=== PATIENT | female | born 1965 | race African-American/Black ===

== ENCOUNTER → 2017-07-25 | Outpatient (CLI) | payer OTHER ==
--- NOTE | 2017-07-29 14:45 | WOMENS IMAGING REPORT ---
EXAM DESCRIPTION: BILAT SCREENING MAMMO W/CAD COMPLETED DATE/TIME: 07/25/2017 4:00 pm REASON FOR STUDY: SCREENING MAMMO Z12.31 ENCNTR SCREEN MAMMOGRAM FOR MALIGNANT NEOPLASM OF LILY COMPARISON: Multiple since 2008 TECHNIQUE: Standard craniocaudal and mediolateral oblique views of each breast recorded using digita l acquisition. LIMITATIONS: None. FINDINGS: Findings present which are benign by mammographic criteria. No suspicious masses, calcifi cations or architectural distortion. Pertinent benign findings: Stable asymmetrically dense breast tissue left upper inner quadrant Read with the assistance of CAD. .[facility] - R2 Cenova Version 1.3 .[facility] Imaging - R2 Cenova Version 1.3 .[facility] - R2 Cenova Version 2.4 .[facility]2 Cenova Version 2.4 .[facility] - R2 Product Marketer Version 9.2 Benign mammographic findings may include one or more of the following: Smooth masses, popcorn/rim/co arse calcifications, asymmetries, post-procedure changes, and lesions with long-standing stability. IMPRESSION: BENIGN MAMMOGRAPHIC FINDINGS. BIRADS 2 BREAST DENSITY: b. There are scattered areas of fibroglandular density. BIRAD: 2 BENIGN FINDING(S) RECOMMENDATION: ROUTINE SCREENING Please consider bilateral screening tomosynthesis in July 2018 COMMENT: The patient has been notified of the results by letter per MQSA requirements. Additional no tification policies are in place for contacting patient with suspicious or incomplete findings. Quality ID #[id number]: The [employer] recommends an annual screening mammogram for women aged 40 years or over. This facility utilizes a reminder system to ensure that all patients receive reminder letters, and/or direct phone calls for appointments. This includes reminders for routine scr eening mammograms, diagnostic mammograms, or other Breast Imaging Interventions when appropriate. Th is patient will be placed in the appropriate reminder system. The [employer] (ACR) has developed recommendations for screening MRI of the breast s in certain patient populations, to be used in conjunction with mammography. Breast MRI surveillanc e may be appropriate for women with more than 20% lifetime risk of developing breast cancer as deter mined by genetic testing, significant family history of the disease, or history of mantle radiation f or Hodgkins Disease. ACR Practice Guidelines 2008. TECHNICAL DOCUMENTATION: FINDING NUMBER: (1) ASSESSMENT: (1) JOB ID: [id number] [employer]- All Rights Reserved
== END ==
LOC: WI 15:27
PROVIDERS: ATTEND Nurse Practitioner
DX: Z12.31 Encounter for screening mammogram for malignant neoplasm of breast (principal)
CPT/HCPCS: 77067; G0202

== ENCOUNTER → 2018-09-09 | Outpatient (CLI) | payer OTHER ==
--- NOTE | 2018-09-10 11:07 | WOMENS IMAGING REPORT ---
EXAM DESCRIPTION: 3D SCREENING MAMMO BILAT COMPLETED DATE/TIME: 09/09/2018 8:49 am REASON FOR STUDY: ROUTINE BILATERAL SCREENING;Z12.31 Z12.31 ENCNTR SCREEN MAMMOGRAM FOR MALIGNANT N EOPLASM OF LILY COMPARISON: 2013 to 2016 TECHNIQUE: Standard craniocaudal and mediolateral oblique views of each breast recorded using digita l acquisition and breast tomosynthesis. LIMITATIONS: None. FINDINGS: No masses, calcifications or architectural distortion. No areas of suspicion. Read with the assistance of CAD. .[facility] - R2 Cenova Version 1.3 .[facility] Imaging - R2 Cenova Version 1.3 .[facility] Imaging - R2 Cenova Version 2.4 .[facility] [place] - R2 Cenova Version 2.4 .[facility] - R2 Drum Drier Version 9.2 IMPRESSION: NORMAL MAMMOGRAM. BIRADS 1. BREAST DENSITY: b. There are scattered areas of fibroglandular density. BIRAD: 1 NEGATIVE RECOMMENDATION: ROUTINE SCREENING COMMENT: The patient has been notified of the results by letter per SA requirements. Additional no tification policies are in place for contacting patient with suspicious or incomplete findings. Quality ID #[id number]: The [employer] recommends an annual screening mammogram for women aged 40 years or over. This facility utilizes a reminder system to ensure that all patients receive reminder letters, and/or direct phone calls for appointments. This includes reminders for routine scr eening mammograms, diagnostic mammograms, or other Breast Imaging Interventions when appropriate. Th is patient will be placed in the appropriate reminder system. The [employer] (ACR) has developed recommendations for screening MRI of the breast s in certain patient populations, to be used in conjunction with mammography. Breast MRI surveillanc e may be appropriate for women with more than 20% lifetime risk of developing breast cancer as deter mined by genetic testing, significant family history of the disease, or history of mantle radiation f or Hodgkins Disease. ACR Practice Guidelines 2008. DBT Technology DBT is a type of tomographic mammography. With conventional mammography, overlapping breast tissue ma y make lesions difficult to detect, even with good compression. DBT uses an x-ray tube that rotates a round the breast, taking images at different angles. These images are then combined to create thin sl ices of the breast that the radiologist can view as a 3D reconstruction. The [employer] [facility] [employer] unit can perform full-field digital mammograms (2D imaging); or DBT (3D imaging); or both, in a combination mode that quickly performs both the mammogram and the tomosynthesis scan while the breast is still compressed. PQRS 6045F: Fluoroscopic imaging is not utilized for breast tomosynthesis. TECHNICAL DOCUMENTATION: FINDING NUMBER: (1) ASSESSMENT: (1) JOB ID: [id number] [employer]- All Rights Reserved Reading location - IP/workstation name: [email or web address]
== END ==
LOC: WI 08:05
PROVIDERS: ATTEND Nurse Practitioner
DX: Z12.31 Encounter for screening mammogram for malignant neoplasm of breast (principal)
CPT/HCPCS: 77063; 77067

== ENCOUNTER 2019-09-25 15:05 | Observation (INO) | payer OTHER ==
[2019-09-25] MEDS ORDERED: ONDANSETRON 4 MG TAB.RAPDIS PO ONE (15:39)
--- NOTE | 2019-09-25 15:39 | ER Document Report ---
ED Medical Screen (RME) - General Chief Complaint: Abdominal Injury Stated Complaint: ABDOMINAL PAIN/VOMITING Time Seen by Provider: 09/25/19 15:35 Primary Care Provider: ABRAHAM العلي FNP [Primary Care Provider] - Follow up as needed Mode of Arrival: Wheelchair Information source: Patient Notes: 54-year-old female presented to ED for complaint of nausea and vomiting since yesterday around 330. She states she went to [facility] about noon started vomiting since 330. She states every time she eats or drinks even water she vomits. She states this morning she started with pain in her right lower quadrant. She is alert oriented respirations regular nonlabored speaking in full sentences. She states she cannot drink anything or eat anything. She denies smoking drinking or using any drugs. I have greeted and performed a rapid initial assessment of this patient. A comprehensive ED assessment and evaluation of the patient, analysis of test results and completion of medical decision making process will be conducted by an additional ED providers. TRAVEL OUTSIDE OF THE [place] IN LAST 30 DAYS: No - Related Data Allergies/Adverse Reactions: acetaminophen [From Tylenol] Allergy (Verified 06/07/15 08:12) EYES ITCH AND SWELL Past Medical History - Past Medical History Cardiac Medical History: Denies: Hx Coronary Artery Disease, Hx Heart Attack, Hx Hypertension Pulmonary Medical History: Denies: Hx Asthma, Hx Bronchitis, Hx COPD, Hx Pneumonia Neurological Medical History: Denies: Hx Cerebrovascular Accident, Hx Seizures Musculoskeltal Medical History: Denies Hx Arthritis Past Surgical History: Denies: Hx Hysterectomy - Immunizations Hx Diphtheria, Pertussis, Tetanus Vaccination: - UNSURE Physical Exam - Vital signs Vitals: Temp Pulse Resp BP Pulse Ox 99 F 84 18 136/51 H 100 09/25/19 15:30 09/25/19 15:30 09/25/19 15:30 09/25/19 15:30 09/25/19 15:30 Course - Vital Signs Vital signs: Temp Pulse Resp BP Pulse Ox 99 F 84 18 136/51 H 100 09/25/19 15:30 09/25/19 15:30 09/25/19 15:30 09/25/19 15:30 09/25/19 15:30 Doctor's Discharge - Discharge Referrals: ABRAHAM العلي FNP [Primary Care Provider] - Follow up as needed
[2019-09-25 16:06] LABS: ABSOLUTE LYMPHOCYTES (AUTO) 1.1 10^3/uL (0.5-4.7); ABSOLUTE NEUT (AUTO) 12.4 10^3/uL (1.7-8.2); BASOPHILS % (AUTO) 0.2 % (0-2); HEMATOCRIT 37.5 % (36.0-47.0); HEMOGLOBIN 12.8 g/dL (12.0-15.5); LYMPHOCYTES % (AUTO) 7.3 % (13-45); MEAN CORPUSCULAR HGB CONC 34.1 g/dL (32.0-36.0); MEAN CORPUSCULAR VOLUME 88 fl (80-97); MONOCYTES % (AUTO) 6.7 % (3-13); PLATELET COUNT 233 10^3/uL (150-450); RED BLOOD COUNT 4.26 10^6/uL (3.72-5.28); RED CELL DISTRIBUTION WIDTH 12.8 % (11.5-14.0); SEGMENTED NEUTROPHILS % (AUTO) 85.8 % (42-78); TOTAL CELLS COUNTED % (AUTO) 100 %; WHITE BLOOD COUNT 14.5 10^3/uL (4.0-10.5)
[2019-09-25 16:28] LABS: ALBUMIN 4.4 g/dL (3.5-5.0); ALKALINE PHOSPHATASE 94 U/L (38-126); ANION GAP 13 (5-19); ASPARTATE AMINO TRANSFERASE 28 U/L (14-36); BILIRUBIN,DIRECT 0.1 mg/dL (0.0-0.4); BILIRUBIN,TOTAL 0.5 mg/dL (0.2-1.3); BLOOD UREA NITROGEN 11 mg/dL (7-20); CALCIUM 9.9 mg/dL (8.4-10.2); CARBON DIOXIDE 27 mmol/L (22-30); CHLORIDE 100 mmol/L (98-107); GLUCOSE 203 mg/dL (75-110); POTASSIUM 3.9 mmol/L (3.6-5.0); TOTAL PROTEIN 8.1 g/dL (6.3-8.2)
[2019-09-25 16:28] LABS: APPEARANCE,URINE SLIGHTLY-CLOUDY; BILIRUBIN,URINE NEGATIVE (NEGATIVE); COLOR,URINE YELLOW; GLUCOSE, URINE 150 mg/dL (NEGATIVE); KETONES,URINE TRACE mg/dL (NEGATIVE); PROTEIN,URINE 30 mg/dL (NEGATIVE); URINE SPECIFIC GRAVITY 1.024
[2019-09-25] MEDS ORDERED: NORMAL SALINE 1000 ML 1,000 ML IV ONE (17:21)
--- NOTE | 2019-09-25 17:22 | ER Document Report ---
ED GI/ - General Chief Complaint: Abdominal Injury Stated Complaint: ABDOMINAL PAIN/VOMITING Time Seen by Provider: 09/25/19 15:35 Mode of Arrival: Wheelchair Notes: Patient is a 54-year-old female who presents the emergency department with a chief complaint of nausea, vomiting, and right lower quadrant abdominal pain. Patient states that yesterday she went to go eat at [facility] and since then she ended up vomiting. Patient states that she has not been able to eat anything since then. Patient denies any fever. Today she ended up having the right lower quadrant pain. The pain stays in the area and does not radiate. Patient has a past medical history of glaucoma and is currently on eyedrops. Patient has history of a tummy tuck and in the past. TRAVEL OUTSIDE OF THE [place] IN LAST 30 DAYS: No - Related Data Allergies/Adverse Reactions: acetaminophen [From Tylenol] Allergy (Verified 09/25/19 15:37) EYES ITCH AND SWELL Past Medical History - General Information source: Patient - Social History Smoking Status: Never Smoker Chew tobacco use (# tins/day): No Frequency of alcohol use: None Drug Abuse: None Family History: Reviewed & Not Pertinent Patient has suicidal ideation: No Patient has homicidal ideation: No - Past Medical History Cardiac Medical History: Denies: Hx Coronary Artery Disease, Hx Heart Attack, Hx Hypertension Pulmonary Medical History: Denies: Hx Asthma, Hx Bronchitis, Hx COPD, Hx Pneumonia Neurological Medical History: Denies: Hx Cerebrovascular Accident, Hx Seizures Musculoskeletal Medical History: Denies Hx Arthritis Past Surgical History: Denies: Hx Hysterectomy - Immunizations Hx Diphtheria, Pertussis, Tetanus Vaccination: - UNSURE Review of Systems - Review of Systems Notes: REVIEW OF SYSTEMS: CONSTITUTIONAL : Denies recent illness. Denies recent unintentional weight loss. Denies fever, chills, or sweats. EENT: Denies eye, ear, throat, or mouth pain, discharge, or symptoms. Denies nasal or sinus congestion. CARDIOVASCULAR: Denies chest pain. RESPIRATORY: Denies shortness of breath, cough, congestion, difficulty breathing, or wheezing. GASTROINTESTINAL: See HPI. GENITOURINARY: Denies difficulty urinating, burning, blood in urine, urgency or frequency. MUSCULOSKELETAL: Denies neck and back pain. Denies joint pain or swelling. SKIN: Denies rash, itchiness, or lesions HEMATOLOGIC : Denies easy bruising or bleeding. LYMPHATIC: Denies swollen, painful, enlarged glands. NEUROLOGICAL: Denies no numbness or tingling denies weakness. Denies headache. Denies altered mental status. Denies alteration in speech. PSYCHIATRIC: Denies stress, anxiety, alteration in sleep patterns, or depression. All other systems reviewed and negative. Physical Exam - Vital signs Vitals: Temp Pulse Resp BP Pulse Ox 99 F 84 18 136/51 H 100 09/25/19 15:30 09/25/19 15:30 09/25/19 15:30 09/25/19 15:30 09/25/19 15:30 - Notes Notes: PHYSICAL EXAMINATION: GENERAL: Appears well, healthy, well-nourished, no acute distress. HEAD: Normocephalic, atraumatic. EYES: PERRL, conjunctiva normal, all extraocular movements intact, sclera nonicteric ENT: Dry mucous membranes. NECK: Supple, no noticeable swelling, redness, rash. Normal range of motion. LUNGS: Equal breath sounds bilaterally and clear to auscultation. No wheezes rales or rhonchi. CARDIOVASCULAR: S1-S2, regular rate, regular rhythm. Radial pulses 2+, normal. ABDOMEN: Normoactive bowel sounds. Soft, right lower quadrant tenderness with guarding noted, rebound tenderness, and no masses palpated. EXTREMITIES: Normal strength and range of motion, no pitting or edema. No cyanosis. NEUROLOGICAL: Moves all extremities upon command. Strength 5/5 in all ex tremities. PSYCH: Normal mood, normal affect. SKIN: Warm, dry. No rash, lesions, ulcerations noted. Normal skin turgor. Scars noted to the abdomen from previous tummy tuck. Course - Re-evaluation Re-evalutation: 09/25/19 18:29 Patient has right lower quadrant abdominal pain. She has guarding noted on physical exam. Patient will be sent for CT of the abdomen. She will also receive a dose of morphine to help with her pain. 09/25/19 19:43 Patient patient has a leukocytosis of 14,500. Chemistries are unremarkable. Bilirubin and total bilirubin and direct bilirubin are normal. Lipase is normal. Urinalysis shows the patient is to be hydrated. She received a liter of fluids here in the emergency department.Patient has cholelithiasis with cholecystitis noted on her CT scan. I spoke with Dr. Sanchez, the surgeon content producer. He will see the patient. Last time the patient ate was yesterday. - Vital Signs Vital signs: Temp Pulse Resp BP Pulse Ox 98.3 F 76 16 113/53 L 93 09/25/19 22:30 09/25/19 22:30 09/25/19 22:30 09/25/19 22:30 09/25/19 22:30 - Laboratory Result Diagrams: 09/25/19 15:51 09/25/19 15:51 Laboratory results interpreted by me: 09/25/19 09/25/19 09/25/19 15:51 15:51 16:06 WBC 14.5 H Lymph % (Auto) 7.3 L Absolute Neuts (auto) 12.4 H Seg Neutrophils % 85.8 H Glucose 203 H Urine Protein 30 H Urine Glucose (UA) 150 H Urine Ketones TRACE H Urine Blood SMALL H Urine Urobilinogen 2.0 H Discharge - Discharge Clinical Impression: Cholecystitis Cholelithiasis Qualifiers: Cholelithiasis location: gallbladder Cholecystitis presence: without cholecystitis Biliary obstruction: with biliary obstruction Qualified Code(s): K80.21 - Calculus of gallbladder without cholecystitis with obstruction Condition: Good Disposition: ADMITTED INPATIENT Admitting Provider: Surgicalist Unit Admitted: Surgical Floor
[2019-09-25] MEDS ORDERED: MORPHINE SULFATE 10 MG/ML INJ IV ONE (18:28)
--- NOTE | 2019-09-25 19:04 | RADIOLOGY REPORT (SQ) ---
EXAM DESCRIPTION: CT ABD/PELVIS WITH IV ONLY COMPLETED DATE/TIME: 09/25/2019 6:45 pm REASON FOR STUDY: abdominal pain COMPARISON: None. TECHNIQUE: CT scan of the abdomen and pelvis performed using helical scanning technique with dynamic intravenous contrast injection. No oral contrast. Images reviewed with lung, soft tissue, and bone windows. Reconstructed coronal and sagittal MPR images reviewed. Delayed images for evaluation of the urinary system also acquired. All images stored on PACS. All CT scanners at this facility use dose modulation, iterative reconstruction, and/or weight based d osing when appropriate to reduce radiation dose to as low as reasonably achievable (ALARA). [facility]: Dose Right [facility]: CareDose [facility]: Dose Right [facility]: Teradose 4D [facility]: [employer] CONTRAST TYPE AND DOSE: contrast/concentration: Isovue 350.00 mg/ml; Total Contrast Delivered: 72.0 ml; Total Saline Delivered: 49.0 ml 72 mL Isovue 350- low osmolar. RENAL FUNCTION: BUN 11, creatinine 0.68 RADIATION DOSE: CT Rad equipment meets quality standard of care and radiation dose reduction techniq ues were employed. CTDIvol: 5.0 - 6.1 mGy. DLP: 582 mGy-cm.. LIMITATIONS: None. FINDINGS: LOWER CHEST: Mild dependent atelectasis. Left fat containing Bochdalek's hernia. LIVER: Normal size. No masses. No dilated ducts. SPLEEN: Normal size. No focal lesions. PANCREAS: No masses. No significant calcifications. No adjacent inflammation or peripancreatic fluid collections. Pancreatic duct not dilated. GALLBLADDER: Hydropic. 12 mm gallstone at the neck. Several additional gallstones within the body a nd fundus. Pericholecystic inflammatory fat stranding and mild periportal edema. ADRENAL GLANDS: No significant masses or asymmetry. RIGHT KIDNEY AND URETER: No solid masses. No significant calcifications. No hydronephrosis or hyd roureter. LEFT KIDNEY AND URETER: No solid masses. No significant calcifications. No hydronephrosis or hydr oureter. AORTA AND VESSELS: No aneurysm. No dissection. Renal arteries, SMA, celiac without stenosis. RETROPERITONEUM: No retroperitoneal adenopathy, hemorrhage or masses. BOWEL AND PERITONEAL CAVITY: Mild colonic wall thickening and enhancement at the hepatic flexure. Mi ld gaseous distention of the ascending colon and cecum. No free fluid or peritoneal masses. APPENDIX: Not visualized. PELVIS: No mass. No free fluid. Normal bladder. ABDOMINAL WALL: No masses. No hernias. BONES: No significant or acute findings. OTHER: No other significant finding. IMPRESSION: Cholelithiasis and findings of acute cholecystitis with a 12 mm gallstone at the neck. Mild reactive colitis at the hepatic flexure with mild gaseous distension of the ascending colon and cecum. TECHNICAL DOCUMENTATION: JOB ID: [id number] Quality ID # [id number]: Final reports with documentation of one or more dose reduction techniques (e.g., Au tomated exposure control, adjustment of the mA and/or kV according to patient size, use of iterative reconstruction technique) 2010 [employer]- All Rights Reserved Reading location - IP/workstation name: [email or web address]
[2019-09-25] MEDS ORDERED: ONDANSETRON HCL INJ/PF 4 MG/2 ML SDV IV PRN (20:26)
[2019-09-25] MEDS ORDERED: DEXTROSE 5%-LACTATED RINGERS 1,000 ML IV PRN (20:26)
[2019-09-25] MEDS ORDERED: HYDROMORPHONE HCL INJ/PF 2 MG/ML AMPULE IV PRN (20:32)
[2019-09-25] MEDS ORDERED: GLUCAGON,HUMAN RECOMB 1 MG INJ IM PRN (20:34)
[2019-09-25] MEDS ORDERED: DEXTROSE 50%-WATER 25 GM/50 ML DISP.SYRIN IV PRN ×2 (20:34)
[2019-09-25] MEDS ORDERED: DEXTROSE 40% GEL 15 GM TUBE PO PRN ×2 (20:34)
[2019-09-25] MEDS ORDERED: KETOROLAC TROMETHAMINE INJ/PF 30 MG/1 ML SDV ONE (20:35)
[2019-09-25] MEDS ORDERED: HYDROMORPHONE HCL INJ/PF 2 MG/ML AMPULE ONE (20:35)
[2019-09-25] MEDS ORDERED: KETOROLAC TROMETHAMINE INJ/PF 30 MG/1 ML SDV IV ONE (20:53)
[2019-09-25] MEDS ORDERED: PIPERACILLIN/TAZOBACTAM 3.375 GM VIAL IV PRN (21:32)
[2019-09-25] MEDS ORDERED: PIPERACILLIN SODIUM/TAZOBACTAM 3.375 GM in NORMAL SALINE 100 ML IV ONE (22:00)
[2019-09-25] MEDS ORDERED: PIPERACILLIN/TAZOBACTAM 3.375 GM VIAL IV ONE ×2 (22:32→22:56)
[2019-09-25] MEDS: INSULIN LISPRO 100 UNIT/ML 3 ML VIAL SUBCUT SCH (23:18)
[2019-09-25] MEDS: KETOROLAC TROMETHAMINE INJ/PF 30 MG/1 ML SDV IV SCH (23:18)
[2019-09-25] MEDS: FAMOTIDINE INJ/PF 20 MG/2 ML SDV IV SCH (23:18)
--- NOTE | 2019-09-26 01:23 | PDOC H&P ---
History of Present Illness Admission Date/PCP: 09/25/19 20:03 TIFFANIE ROBLERO Patient complains of: Right-sided abdominal pain History of Present Illness: MELINA UREÑA is a 54 year old female with severe, stabbing right-sided abdominal pain. The pain began after eating at [employer] this evening. The patient had severe nausea, vomiting, and abdominal pain. Her symptoms were unrelenting, so she presented to the emergency department. Upon questioning, she does have frequent "indigestion" after eating. She has had symptoms similar to this before, but they always subside spontaneously. She denies chest pain, shortness of breath, fevers, chills, dizziness, blurry vision, orthostasis, headache, dizziness, malaise, or fatigue. Eating makes her pain worse. Pain medications have made it better. Pain does not radiate. Her pain is sharp and stabbing. At its worst, it is 8 out of 10. Past Medical History Cardiac Medical History: Denies: Coronary Artery Disease, Myocardial Infarction, Hypertension Pulmonary Medical History: Denies: Asthma, Bronchitis, Chronic Obstructive Pulmonary Disease (COPD), Pneumonia Neurological Medical History: Denies: Seizures Endocrine Medical History: Denies: Diabetes Mellitus Type 1, Diabetes Mellitus Type 2 Musculoskeltal Medical History: Denies: Arthritis Hematology: Reports: Anemia Past Surgical History Past Surgical History: Reports: Section, Other - Abdominoplasty Denies: Hysterectomy Social History Smoking Status: Never Smoker Electronic Cigarette use?: No Frequency of Alcohol Use: Occasional Hx Recreational Drug Use: No Drugs: None Hx Prescription Drug Abuse: No Family History Parental Family History Reviewed: Yes Children Family History Reviewed: Yes Sibling(s) Family History Reviewed.: Yes Medication/Allergy Home Medications: No Home Medications 06/07/15 Allergies/Adverse Reactions: acetaminophen [From Tylenol] Allergy (Verified 09/25/19 15:37) EYES ITCH AND SWELL Review of Systems Constitutional: ABSENT: anorexia, chills, fatigue, fever(s), headache(s), night sweats, weakness Eyes: ABSENT: visual disturbances Ears: ABSENT: hearing changes Nose, Mouth, and Throat: ABSENT: mouth pain, sore throat Cardiovascular: ABSENT: chest pain Respiratory: ABSENT: cough, dyspnea Gastrointestinal: PRESENT: abdominal pain, nausea, vomiting. ABSENT: hematemesis, hematochezia, melena Genitourinary: ABSENT: dysuria Musculoskeletal: ABSENT: back pain Integumentary: ABSENT: pruritus, rash Neurological: ABSENT: confusion, convulsions, dizziness, paresthesias Psychiatric: ABSENT: anxiety, depression Endocrine: ABSENT: cold intolerance, heat intolerance Hematologic/Lymphatic: ABSENT: easy bleeding, easy bruising Physical Exam Vital Signs: Temp Pulse Resp BP Pulse Ox 99.3 F 82 17 138/58 H 94 09/25/19 19:25 09/25/19 19:25 09/25/19 19:25 09/25/19 19:25 09/25/19 19:25 Intake & Output 09/24/19 09/25/19 09/26/19 06:59 06:59 05:59 Intake Total 1000 Balance 1000 Weight 63.049 kg General appearance: PRESENT: cooperative, mild distress - Abdominal pain. ABSENT: disheveled Head exam: PRESENT: atraumatic, normocephalic Eye exam: PRESENT: EOMI, PERRLA. ABSENT: scleral icterus Mouth exam: PRESENT: moist, neck supple Teeth exam: ABSENT: poor dentation Neck exam: ABSENT: tenderness, thyromegaly, tracheal deviation, tracheostomy Respiratory exam: PRESENT: clear to auscultation rose marie, unlabored. ABSENT: chest wall tenderness, tachypnea, wheezes Cardiovascular exam: PRESENT: RRR Pulses: PRESENT: normal radial pulses GI/Abdominal exam: PRESENT: Dye's sign, soft, tenderness - Right upper quadrant. ABSENT: distended, hernia Rectal exam: PRESENT: deferred Extremities exam: ABSENT: clubbing Musculoskeletal exam: ABSENT: deformity Neurological exam: PRESENT: alert, awake, oriented to person, oriented to place, oriented to time, oriented to situation, CN II-XII grossly intact. ABSENT: motor sensory deficit Psychiatric exam: ABSENT: agitated, anxious, depressed Focused psych exam: ABSENT: delusional Skin exam: ABSENT: cyanosis, erythema, jaundice Results Laboratory Results: 09/25/19 15:51 09/25/19 15:51 09/25/19 09/25/19 09/25/19 15:51 15:51 15:51 WBC 14.5 H RBC 4.26 Hgb 12.8 Hct 37.5 MCV 88 MCH 30.0 MCHC 34.1 RDW 12.8 Plt Count 233 Seg Neutrophils % 85.8 H Sodium 140.2 Potassium 3.9 Chloride 100 Carbon Dioxide 27 Anion Gap 13 BUN 11 Creatinine 0.68 Est GFR ( Amer) > 60 Glucose 203 H Calcium 9.9 Total Bilirubin 0.5 AST 28 Alkaline Phosphatase 94 Total Protein 8.1 Albumin 4.4 Lipase 41.0 Urine Color Urine Appearance Urine pH Ur Specific [place] Urine Protein Urine Glucose (UA) Urine Ketones Urine Blood 09/25/19 16:06 WBC RBC Hgb Hct MCV MCH MCHC RDW Plt Count Seg Neutrophils % Sodium Potassium Chloride Carbon Dioxide Anion Gap BUN Creatinine Est GFR ( Amer) Glucose Calcium Total Bilirubin AST Alkaline Phosphatase Total Protein Albumin Lipase Urine Color YELLOW Urine Appearance SLIGHTLY-CLOUDY Urine pH 7.0 Ur Specific [place] 1.024 Urine Protein 30 H Urine Glucose (UA) 150 H Urine Ketones TRACE H Urine Blood SMALL H Impressions: Abdomen/Pelvis CT 09/25/19 18:04 IMPRESSION: Cholelithiasis and findings of acute cholecystitis with a 12 mm gallstone at the neck. Mild reactive colitis at the hepatic flexure with mild gaseous distension of the ascending colon and cecum. Assessment & Plan - Diagnosis (1) Acute cholecystitis Is this a current diagnosis for this admission?: Yes (2) Hyperglycemia Is this a current diagnosis for this admission?: Yes - Plan Summary Plan Summary: This is a 54-year-old female with acute cholecystitis, found on CT scan. Her LFTs are normal. She does have a Dye sign. I have recommended admission, IV hydration, intravenous antibiotics, and surgical intervention. I will start Zosyn, and plan for surgery tomorrow. The patient is in agreement with the treatment plan. Patient's blood sugars were 203 on her chemistry panel today. The patient denies any history of diabetes, although she says she may be "borderline". I will initiate blood glucose fingersticks. I will cover her with sliding scale, if indicated. This may require further work-up.
[2019-09-26] MEDS: PIPERACILLIN SODIUM/TAZOBACTAM 3.375 GM in NORMAL SALINE 100 ML IV SCH ×4 (03:00→22:23)
[2019-09-26] MEDS: KETOROLAC TROMETHAMINE INJ/PF 30 MG/1 ML SDV IV SCH ×3 (05:31→22:24)
[2019-09-26] MEDS: NORMAL SALINE 1000 ML 1,000 ML IV PRN ×2 (05:33→22:24)
[2019-09-26 05:38] LABS: ABSOLUTE LYMPHOCYTES (AUTO) 1.3 10^3/uL (0.5-4.7); ABSOLUTE MONOCYTES (AUTO) 1.1 10^3/uL (0.1-1.4); ABSOLUTE NEUT (AUTO) 16.8 10^3/uL (1.7-8.2); BASOPHILS % (AUTO) 0.2 % (0-2); HEMATOCRIT 33.7 % (36.0-47.0); HEMOGLOBIN 11.1 g/dL (12.0-15.5); LYMPHOCYTES % (AUTO) 6.9 % (13-45); MEAN CORPUSCULAR HEMOGLOBIN 29.3 pg (27.0-33.4); MEAN CORPUSCULAR VOLUME 89 fl (80-97); MONOCYTES % (AUTO) 5.7 % (3-13); PLATELET COUNT 211 10^3/uL (150-450); RED CELL DISTRIBUTION WIDTH 13.1 % (11.5-14.0); SEGMENTED NEUTROPHILS % (AUTO) 87.2 % (42-78); TOTAL CELLS COUNTED % (AUTO) 100 %; WHITE BLOOD COUNT 19.2 10^3/uL (4.0-10.5)
[2019-09-26 06:03] LABS: ALBUMIN 3.5 g/dL (3.5-5.0); ALKALINE PHOSPHATASE 71 U/L (38-126); ANION GAP 10 (5-19); ASPARTATE AMINO TRANSFERASE 46 U/L (14-36); BILIRUBIN,DIRECT 0.1 mg/dL (0.0-0.4); BILIRUBIN,TOTAL 0.9 mg/dL (0.2-1.3); BLOOD UREA NITROGEN 13 mg/dL (7-20); CALCIUM 8.9 mg/dL (8.4-10.2); CARBON DIOXIDE 25 mmol/L (22-30); CHLORIDE 102 mmol/L (98-107); GLUCOSE 207 mg/dL (75-110); POTASSIUM 3.9 mmol/L (3.6-5.0); TOTAL PROTEIN 6.6 g/dL (6.3-8.2)
[2019-09-26] MEDS ORDERED: BUPIVACAINE HCL 0.25 % INJ/PF (2.5 MG/1 ML) 30 ML VIAL ONE (07:36)
--- NOTE | 2019-09-26 08:08 | EKG REPORT ---
SEVERITY:- NORMAL ECG - SINUS RHYTHM : Confirmed by: Ab Gardner MD 26-Sep-2019 08:08:19
[2019-09-26] MEDS: INSULIN LISPRO 100 UNIT/ML 3 ML VIAL SUBCUT SCH ×4 (08:38→22:23)
[2019-09-26] MEDS ORDERED: FENTANYL CITRATE INJ/PF 100 MCG/2 ML AMPUL ONE (09:24)
[2019-09-26] MEDS ORDERED: PROPOFOL INJ 200 MG/20 ML VIAL IV ONE (09:24)
[2019-09-26] MEDS ORDERED: MIDAZOLAM 2 MG/2 ML INJ ONE (09:24)
[2019-09-26] MEDS ORDERED: MORPHINE SULFATE 10 MG/ML INJ ONE (09:24)
[2019-09-26] MEDS ORDERED: ROCURONIUM BROMIDE INJ 50 MG/5 ML VIAL IV ONE (09:29)
[2019-09-26] MEDS ORDERED: DEXAMETHASONE SOD PHOSPHATE INJ 4 MG/1 ML VIAL ONE (09:29)
[2019-09-26] MEDS ORDERED: ONDANSETRON HCL INJ/PF 4 MG/2 ML SDV ONE (09:29)
[2019-09-26] MEDS ORDERED: SUCCINYLCHOLINE CHLORIDE INJ 200 MG/10 ML VIAL ONE (09:29)
[2019-09-26] MEDS ORDERED: MORPHINE SULFATE 10 MG/ML INJ IV PRN (10:01)
[2019-09-26] MEDS ORDERED: PROMETHAZINE HCL INJ 25 MG/1 ML VIAL IV PRN ×2 (10:01)
[2019-09-26] MEDS ORDERED: MEPERIDINE HCL/PF INJ 25 MG/1 ML DISP.SYRIN IV PRN (10:01)
[2019-09-26] MEDS ORDERED: FENTANYL CITRATE INJ/PF 100 MCG/2 ML AMPUL IV PRN ×3 (10:01)
[2019-09-26] MEDS ORDERED: DIPHENHYDRAMINE HCL 50 MG/ML VIAL IV PRN (10:01)
[2019-09-26] MEDS ORDERED: SUGAMMADEX SODIUM 200 MG/2 ML SDV IV ONE (10:19)
--- NOTE | 2019-09-26 10:41 | Operative Report ---
Operative Report DATE OF SURGERY: 09/26/19 PREOPERATIVE DIAGNOSIS: acute cholecystitis. Cholelithiasis POSTOPERATIVE DIAGNOSIS: Same OPERATION: Laparoscopic cholecystectomy SURGEON: JACK VAN ANESTHESIA: GA TISSUE REMOVED OR ALTERED: Gallbladder COMPLICATIONS: None ESTIMATED BLOOD LOSS: 20 cc QUANTITATIVE BLOOD LOSS: 20 INTRAOPERATIVE FINDINGS: Acute cholecystitis with cholelithiasis PROCEDURE: After adequate general anesthesia patient was placed in supine position and the abdomen prepped and draped in the usual sterile fashion. Appropriate timeout was then called. Next an infraumbilical elliptical incision was made carried down to the fascia. Fascia was then grasped with [place] clamps on each side and divided between the 2 Avelino clamps. 0 Vicryl sutures were placed on each side each side of the clamp and the clamps were released. Digital diabetic dissection through the peritoneal cavity was done and no evidence of adhesions. A Carr trocar was then inserted through the fascia into the abdominal cavity and CO2 insufflated to pressure 15 mmHg. Next 3 other trochars were placed at 12 mm in the subxiphoid and two 5 mm in the right upper quadrant under direct vision. The gallbladder was noted to be distended and this was then partially decompressed with a long needle. The bile aspirated was clear bile indicating a hydrops of the gallbladder with possible stone obstructing the cystic duct. Next the puncture site and the gallbladder was then grasped and pulled over the liver. The cystic duct area was then dissected after placing a clamp on the infundibulum. Since the gallbladder noted to be edematous. Cystic duct identified as well as a cystic artery and after the angle of safety was identified the cystic duct was then clipped 3 times proximally and one distal and divided between the 2 distal clips. Cystic artery also was then clipped with hemoclips and divided between the Hemoclip in the gallbladder with the use of harmonic kaylin. The gallbladder was then taken off the liver bed with the use of harmonic kaylin though most of the gallbladder was peeled off from the liver. Gallbladder was incompletely removed from the liver bed and placed in an Endobag and pulled out through the umbilical port. Carr trocar was inserted back and the liver bed inspected and no evidence of active bleeding noted. There was some clots noted and this was aspirated as well and irrigated. A 2 pieces of Surgicel were placed on the liver bed to make sure of hemostasis. All the trochars were then removed and CO2 allowed to come out of the trocar sites. The fascial defect in the infraumbilical area was then closed with a fig [id number] suture using 0 Vicryl and the 2 stay sutures tied over for better closure. Patient did have a previous tummy tuck surgery and a new umbilicus was created and therefore it is not the real umbilicus that we were dealing with. And rate the fascia was closed well and the Marcaine injected through the fascia and all the skin incisions. The skin incisions were then closed with running kay bcuticular closure using 4-0 Vicryl undyed. Steri-Strips placed over the operative sites. Needle instrument sponge counts were all correct estimated blood loss is about 20 cc. Patient then brought to the recovery room extubated in satisfactory condition
[2019-09-26] MEDS ORDERED: OXYCODONE-ACETAMINOPHEN 5-325 MG TABLET PO PRN (10:44)
[2019-09-26] MEDS: FAMOTIDINE INJ/PF 20 MG/2 ML SDV IV SCH ×2 (11:53→22:24)
[2019-09-27] MEDS: KETOROLAC TROMETHAMINE INJ/PF 30 MG/1 ML SDV IV SCH ×3 (05:04→22:16)
[2019-09-27] MEDS: PIPERACILLIN SODIUM/TAZOBACTAM 3.375 GM in NORMAL SALINE 100 ML IV SCH ×4 (05:04→20:12)
[2019-09-27 05:50] LABS: ALBUMIN 2.9 g/dL (3.5-5.0); ALKALINE PHOSPHATASE 72 U/L (38-126); ANION GAP 9 (5-19); ASPARTATE AMINO TRANSFERASE 49 U/L (14-36); BILIRUBIN,DIRECT 0.3 mg/dL (0.0-0.4); BILIRUBIN,TOTAL 0.5 mg/dL (0.2-1.3); BLOOD UREA NITROGEN 16 mg/dL (7-20); CALCIUM 8.5 mg/dL (8.4-10.2); CARBON DIOXIDE 24 mmol/L (22-30); CHLORIDE 106 mmol/L (98-107); GLUCOSE 200 mg/dL (75-110); POTASSIUM 4.1 mmol/L (3.6-5.0); TOTAL PROTEIN 5.9 g/dL (6.3-8.2)
[2019-09-27 06:01] LABS: ABSOLUTE LYMPHOCYTES (AUTO) 1.1 10^3/uL (0.5-4.7); ABSOLUTE MONOCYTES (AUTO) 1.3 10^3/uL (0.1-1.4); ABSOLUTE NEUT (AUTO) 15.7 10^3/uL (1.7-8.2); BASOPHILS % (AUTO) 0.1 % (0-2); HEMATOCRIT 32.4 % (36.0-47.0); HEMOGLOBIN 10.7 g/dL (12.0-15.5); LYMPHOCYTES % (AUTO) 6.2 % (13-45); MEAN CORPUSCULAR HEMOGLOBIN 29.4 pg (27.0-33.4); MEAN CORPUSCULAR HGB CONC 33.2 g/dL (32.0-36.0); MEAN CORPUSCULAR VOLUME 89 fl (80-97); PLATELET COUNT 181 10^3/uL (150-450); RED BLOOD COUNT 3.65 10^6/uL (3.72-5.28); RED CELL DISTRIBUTION WIDTH 13.2 % (11.5-14.0); SEGMENTED NEUTROPHILS % (AUTO) 86.7 % (42-78); TOTAL CELLS COUNTED % (AUTO) 100 %; WHITE BLOOD COUNT 18.1 10^3/uL (4.0-10.5)
[2019-09-27] MEDS: INSULIN LISPRO 100 UNIT/ML 3 ML VIAL SUBCUT SCH ×4 (08:44→22:17)
[2019-09-27] MEDS: FAMOTIDINE INJ/PF 20 MG/2 ML SDV IV SCH ×3 (09:26→22:17)
[2019-09-27] MEDS ORDERED: ONDANSETRON HCL INJ/PF 4 MG/2 ML SDV IV PRN (10:00)
--- NOTE | 2019-09-27 10:08 | PDOC PROGRESS REPORT ---
Subjective Progress Note for:: 09/27/19 Subjective:: Patient feels well; pain management. Voiding. Tolerating limited p.o. Reason For Visit: ACUTE CHOLECYSTITIS Physical Exam Vital Signs: Temp Pulse Resp BP Pulse Ox 98.4 F 64 16 114/57 L 97 09/26/19 23:55 09/26/19 23:55 09/26/19 23:55 09/26/19 23:55 09/26/19 23:55 Intake & Output 09/26/19 09/27/19 09/28/19 06:59 06:59 06:59 Intake Total 3240 100 Output Total 270 Balance 2970 100 Weight 63.1 kg General appearance: PRESENT: no acute distress GI/Abdominal exam: PRESENT: other - Dressing dry, intact. Appropriately tender abdomen. No peritoneal signs. Results Laboratory Results: 09/27/19 05:01 09/27/19 05:01 09/27/19 09/27/19 05:01 05:01 WBC 18.1 H RBC 3.65 L Hgb 10.7 L Hct 32.4 L MCV 89 MCH 29.4 MCHC 33.2 RDW 13.2 Plt Count 181 Seg Neutrophils % 86.7 H Sodium 139.4 Potassium 4.1 Chloride 106 Carbon Dioxide 24 Anion Gap 9 BUN 16 Creatinine 0.98 Est GFR ( Amer) > 60 Glucose 200 H Calcium 8.5 Total Bilirubin 0.5 AST 49 H Alkaline Phosphatase 72 Total Protein 5.9 L Albumin 2.9 L Impressions: Abdomen/Pelvis CT 09/25/19 18:04 IMPRESSION: Cholelithiasis and findings of acute cholecystitis with a 12 mm gallstone at the neck. Mild reactive colitis at the hepatic flexure with mild gaseous distension of the ascending colon and cecum. Assessment & Plan - Diagnosis (1) Acute cholecystitis Is this a current diagnosis for this admission?: Yes Plan: Impression: Patient is 1 day status post laparoscopic cholecystectomy for acute cholecystitis. Doing well, tolerating diet, voiding, with adequate pain control. Remains on IV antibiotics for her abdominal sepsis; persisting leukocytosis. Patient recently diagnosed with diabetes mellitus this admission. Recommendations: 1. We will advance diet as tolerated; will add Colace as stool softener 2. Hospitalist service consulted for management of newly diagnosed diabetes mellitus 3. Anticipate discharge from hospital in the next 24 to 48 hours: This was discussed with patient and at bedside. (2) Hyperglycemia Is this a current diagnosis for this admission?: Yes - Time Time Spent with patient: 15-24 minutes Smoking Cessation Education: 3 to 10 minutes Medications reviewed and adjusted accordingly: Yes Anticipated discharge: Home
--- NOTE | 2019-09-27 16:02 | Progress Note ---
Provider Note Provider Note: 54-year-old female newly diagnosed diabetes mellitus status post laparoscopic cholecystectomy for acute cholecystitis per surgical team, saw patient this morning, in no apparent distress, denies any fever, chills, nausea, vomiting, diarrhea, constipation or any urinary symptoms. Acute cholecystitis: Acute cholecystitis s/p laparoscopic cholecystectomy. Will defer management to surgical team. Diabetes II: Newly diagnosed. Hemoglobin A1c 7.0. Contine Accu-Chek, sliding scale insulin, diabetic education. Will order TSH and lipid panel. Could be discharged on metformin 500 mg p.o. twice daily to be uptitrated 2000 mg p.o. twice daily by PCP.
[2019-09-27 16:18] LABS: CHOLESTEROL 146.48 mg/dL (0-200); TRIGLYCERIDES 70 mg/dL (<150)
[2019-09-27 16:29] LABS: DIRECT LDL 79 mg/dL (<100)
[2019-09-27] MEDS: DOCUSATE SODIUM 100 MG CAPSULE PO SCH (17:05)
--- NOTE | 2019-09-27 23:45 | PDOC CONSULTATION ---
Consultation Consult Date: 09/27/19 Attending physician:: JACK VAN Provider Consulted: CECI FITZPATRICK Consult reason:: Elevated hemoglobin A1c History of Present Illness Admission Date/PCP: 09/25/19 20:03 TIFFANIE ROBLERO Patient complains of: Elevated hemoglobin A1c History of Present Illness: MELINA UREÑA is a 54 year old female who presented to the emergency room on 09/25/2019 with right-sided abdominal pain accompanied by nausea and vomiting. She was discovered to have acute cholecystitis and was treated by the surgery service undergoing a laparoscopic cholecystectomy, performed by Dr. Jack Van on 09/26/2019. During her postoperative phase she was noted to have persistent hyperglycemia and a hemoglobin A1c was obtained with a result of 7.4% . The hospital service was then consulted for evaluation and treatment. She denies any associated or accompanying signs and symptoms relative to her hyperglycemia. She has been experiencing an otherwise unremarkable postoperative course. Past Medical History Cardiac Medical History: Denies: Coronary Artery Disease, Myocardial Infarction, Hypertension Pulmonary Medical History: Denies: Asthma, Bronchitis, Chronic Obstructive Pulmonary Disease (COPD), Pneumonia EENT Medical History: Denies: Cataracts, Ears - Hearing aids, Nose - Allergic rhinitis Neurological Medical History: Denies: Hemorrhagic CVA, Ischemic CVA, Seizures Endocrine Medical History: Denies: Diabetes Mellitus Type 1, Diabetes Mellitus Type 2, Hyperthyroidism, Hypothyroidism, Obesity Renal/ Medical History: Denies: Chronic Kidney Disease, Nephrolithiasis Malignancy Medical History: Reports: None GI Medical History: Reports: Other - Acute cholecystitis Denies: Cirrhosis, Gastroesophageal Reflux Disease, Hepatitis, Peptic Ulcer Disease Musculoskeltal Medical History: Denies: Arthritis, Gout Skin Medical History: Denies: Eczema, Psoriasis Psychiatric Medical History: Denies: Alcohol Dependency, Depression, Substance Abuse, Tobacco Dependency Traumatic Medical History: Reports: None Hematology: Reports: Anemia Denies: Bleeding Tendencies Infectious Medical History: Reports: None Past Surgical History Past Surgical History: Reports: Section, Other - Abdominoplasty Social History Information Source: Patient Lives with: Spouse/Significant other Smoking Status: Never Smoker Electronic Cigarette use?: No Frequency of Alcohol Use: Occasional Hx Recreational Drug Use: No Drugs: None Hx Prescription Drug Abuse: No - Advance Directive Resuscitation Status: Full Code Surrogate healthcare decision maker:: Ronak Ureña Family History Family History: denies: CAD, DM, Hypertension, Malignancy Parental Family History Reviewed: Yes Children Family History Reviewed: No Sibling(s) Family History Reviewed.: Yes Medication/Allergy Home Medications: No Home Medications 09/26/19 Allergies/Adverse Reactions: acetaminophen [From Tylenol] Allergy (Verified 09/25/19 15:37) EYES ITCH AND SWELL Review of Systems Constitutional: ABSENT: chills, fever(s) Eyes: ABSENT: visual disturbances, other - Eye pain Ears: ABSENT: hearing changes, other - Ear pain Nose, Mouth, and Throat: ABSENT: mouth pain, sore throat Cardiovascular: ABSENT: chest pain, palpitations Respiratory: ABSENT: cough, dyspnea Gastrointestinal: PRESENT: abdominal pain, nausea, vomiting. ABSENT: constipation, diarrhea Genitourinary: ABSENT: dysuria, hematuria Musculoskeletal: ABSENT: back pain, joint swelling, muscle weakness Integumentary: ABSENT: pruritus, rash Neurological: ABSENT: confusion, convulsions, focal weakness, memory loss, syncope Psychiatric: ABSENT: anxiety, depression Endocrine: ABSENT: cold intolerance, heat intolerance Hematologic/Lymphatic: ABSENT: easy bleeding, easy bruising Allergic/Immunologic: ABSENT: seasonal rhinorrhea Physical Exam Vital Signs: Temp Pulse Resp BP Pulse Ox 98.9 F 64 18 136/65 H 97 09/27/19 16:56 09/27/19 16:56 09/27/19 16:56 09/27/19 16:56 09/27/19 16:56 Intake & Output 09/26/19 09/26/19 09/27/19 00:59 23:59 23:59 Intake Total 1080 Output Total Balance 1080 Weight 63.1 kg General appearance: PRESENT: no acute distress, cooperative Head exam: PRESENT: atraumatic, normocephalic Eye exam: PRESENT: conjunctiva pink. ABSENT: conjunctival injection, scleral icterus Ear exam: PRESENT: normal external ear exam. ABSENT: bleeding, drainage Mouth exam: PRESENT: dry mucosa, neck supple Neck exam: ABSENT: thyromegaly, tracheal deviation Respiratory exam: PRESENT: clear to auscultation rose marie, symmetrical, unlabored Cardiovascular exam: PRESENT: RRR. ABSENT: clicks, gallop, rubs Pulses: PRESENT: normal radial pulses, normal dorsalis pedis pul Vascular exam: PRESENT: normal capillary refill. ABSENT: pallor GI/Abdominal exam: PRESENT: normal bowel sounds, soft, other - Surgical incisions status post laparoscopic cholecystectomy, wounds are clean and dry Rectal exam: PRESENT: deferred Extremities exam: ABSENT: pedal edema, tenderness Musculoskeletal exam: ABSENT: deformity, dislocation Neurological exam: PRESENT: alert, oriented to person, oriented to place, oriented to time, oriented to situation, CN II-XII grossly intact. ABSENT: motor sensory deficit Psychiatric exam: PRESENT: appropriate affect, normal mood Skin exam: PRESENT: dry, intact, warm. ABSENT: jaundice, rash, urticaria Results Laboratory Results: 09/27/19 05:01 09/27/19 05:01 09/27/19 09/27/19 09/27/19 05:01 05:01 05:07 WBC 18.1 H RBC 3.65 L Hgb 10.7 L Hct 32.4 L MCV 89 MCH 29.4 MCHC 33.2 RDW 13.2 Plt Count 181 Seg Neutrophils % 86.7 H Sodium 139.4 Potassium 4.1 Chloride 106 Carbon Dioxide 24 Anion Gap 9 BUN 16 Creatinine 0.98 Est GFR ( Amer) > 60 Glucose 200 H Calcium 8.5 Total Bilirubin 0.5 AST 49 H Alkaline Phosphatase 72 Total Protein 5.9 L Albumin 2.9 L Triglycerides 70 Cholesterol 146.48 LDL Cholesterol Direct 79 VLDL Cholesterol 14.0 HDL Cholesterol 44 TSH 09/27/19 05:07 WBC RBC Hgb Hct MCV MCH MCHC RDW Plt Count Seg Neutrophils % Sodium Potassium Chloride Carbon Dioxide Anion Gap BUN Creatinine Est GFR ( Amer) Glucose Calcium Total Bilirubin AST Alkaline Phosphatase Total Protein Albumin Triglycerides Cholesterol LDL Cholesterol Direct VLDL Cholesterol HDL Cholesterol TSH 0.24 L Impressions: Abdomen/Pelvis CT 09/25/19 18:04 IMPRESSION: Cholelithiasis and findings of acute cholecystitis with a 12 mm gallstone at the neck. Mild reactive colitis at the hepatic flexure with mild gaseous distension of the ascending colon and cecum. Assessment and Plan - Diagnosis (1) Hyperglycemia Is this a current diagnosis for this admission?: Yes (2) Elevated hemoglobin A1c Is this a current diagnosis for this admission?: Yes (3) Diabetes mellitus type 2 in nonobese Is this a current diagnosis for this admission?: Yes (4) Acute cholecystitis Is this a current diagnosis for this admission?: Yes (5) Cholelithiasis Qualifiers: Cholelithiasis location: gallbladder Cholecystitis presence: with cholecystitis Cholecystitis acuity: acute Biliary obstruction: with biliary obstruction Qualified Code(s): K80.01 - Calculus of gallbladder with acute cholecystitis with obstruction Is this a current diagnosis for this admission?: Yes - Plan Summary Summary: Patient will be treated with a diabetic consistent carbohydrate diet and will be started on metformin 500 mg p.o. twice daily when she is ready to be started on a full diet. Before meals and bedtime Accu-Cheks will be performed and sliding scale insulin will be used to cover hyperglycemia with a hypoglycemic protocol in place. She will receive diabetic education from nutrition services. She will require follow-up with her primary care provider to titrate her diabetic therapy and follow her diabetes on an ongoing basis with appropriate routine diabetic screenings and evaluations including annual eye exams and diabetic foot exams. - Time Time Spent with patient: Less than 15 minutes Medications reviewed and adjusted accordingly: Yes Anticipated discharge: Home
[2019-09-28] MEDS: PIPERACILLIN SODIUM/TAZOBACTAM 3.375 GM in NORMAL SALINE 100 ML IV SCH ×2 (02:26→09:17)
[2019-09-28] MEDS: KETOROLAC TROMETHAMINE INJ/PF 30 MG/1 ML SDV IV SCH (05:21)
[2019-09-28] MEDS: INSULIN LISPRO 100 UNIT/ML 3 ML VIAL SUBCUT SCH (08:12)
[2019-09-28 09:17] VITALS: BP 140/74
[2019-09-28] MEDS: DOCUSATE SODIUM 100 MG CAPSULE PO SCH (09:17)
[2019-09-28] MEDS: FAMOTIDINE INJ/PF 20 MG/2 ML SDV IV SCH (09:17)
[2019-09-28 11:22] LABS: HEMATOCRIT 30.8 % (36.0-47.0); HEMOGLOBIN 10.6 g/dL (12.0-15.5); MEAN CORPUSCULAR HEMOGLOBIN 30.3 pg (27.0-33.4); MEAN CORPUSCULAR HGB CONC 34.3 g/dL (32.0-36.0); MEAN CORPUSCULAR VOLUME 88 fl (80-97); PLATELET COUNT 205 10^3/uL (150-450); RED BLOOD COUNT 3.49 10^6/uL (3.72-5.28); RED CELL DISTRIBUTION WIDTH 12.9 % (11.5-14.0); WHITE BLOOD COUNT 9.3 10^3/uL (4.0-10.5)
[2019-09-28 12:13] LABS: FREE T3 2.15 pg/mL (2.77-5.27); FREE T4 (FREE THYROXINE) 1.11 ng/dL (0.78-2.19)
--- NOTE | 2019-09-29 16:21 | PDOC DISCHARGE SUMMARY ---
General - Admit/Disc Date/PCP Admission Date/Primary Care Provider: 09/25/19 20:03 TIFFANIE ROBLERO Discharge Date: 09/28/19 - Discharge Diagnosis Final Diagnosis: Acute cholecystitis Cholelithiasis New onset diabetes mellitus - Assessment Summary: Patient will be treated with a diabetic consistent carbohydrate diet and will be started on metformin 500 mg p.o. twice daily when she is ready to be started on a full diet. Before meals and bedtime Accu-Cheks will be performed and sliding scale insulin will be used to cover hyperglycemia with a hypoglycemic protocol in place. She will receive diabetic education from nutrition services. She will require follow-up with her primary care provider to titrate her diabetic therapy and follow her diabetes on an ongoing basis with appropriate routine diabetic screenings and evaluations including annual eye exams and diabetic foot exams. - Additional Information Resuscitation Status: Full Code Discharge Diet: Regular Discharge Activity: Activity As Tolerated Referrals: [facility] [Provider Group] - 10/12/19 1:00 pm ABRAHAM العلي FNP [Primary Care Provider] - ([phone] PATIENT WILL MAKE OWN APPT.) Home Medications: No Home Medications 09/26/19 History of Present Illiness History of Present Illness: MELINA UREÑA is a 54 year old female Hospital Course Hospital Course: Patient admitted on 09/25/2019 for acute cholecystitis and cholelithiasis. She then underwent laparoscopic cholecystectomy on 09/26/[address] Srivastava. Postoperatively she was noted to have persistent elevated blood sugar and therefore medical consultation obtained. She was seen by the surgical list on 09/27/2019 and suggested metformin 500 mg twice a day and to be followed up by her primary physician for titration of the medication. Her A1c level was elevated to 7.4. He was doing well postoperatively and discharged improved on 09/28/2019. Patient advised to see primary physician in a week and to see us in the surgical clinic in 2 weeks. Physical Exam Vital Signs: Temp Pulse Resp BP Pulse Ox 99.2 F 83 18 140/74 H 95 09/28/19 11:18 09/28/19 11:18 09/28/19 11:18 09/28/19 11:18 09/28/19 11:18 Intake & Output 09/28/19 09/29/19 09/30/19 06:59 06:59 06:59 Intake Total 1180 Balance 1180 Weight 63.7 kg Exam: Patient noted to have tenderness in the right upper quadrant on admission. Results Laboratory Results: WBC 9.3 10^3/uL (4.0-10.5) 09/28/19 10:30 RBC 3.49 10^6/uL (3.72-5.28) L 09/28/19 10:30 Hgb 10.6 g/dL (12.0-15.5) L 09/28/19 10:30 Hct 30.8 % (36.0-47.0) L 09/28/19 10:30 MCV 88 fl (80-97) 09/28/19 10:30 MCH 30.3 pg (27.0-33.4) 09/28/19 10:30 MCHC 34.3 g/dL (32.0-36.0) 09/28/19 10:30 RDW 12.9 % (11.5-14.0) 09/28/19 10:30 Plt Count 205 10^3/uL (150-450) 09/28/19 10:30 Lymph % (Auto) 6.2 % (13-45) L 09/27/19 05:01 Pierce % (Auto) 7.0 % (3-13) 09/27/19 05:01 Eos % (Auto) 0.0 % (0-6) 09/27/19 05:01 Baso % (Auto) 0.1 % (0-2) 09/27/19 05:01 Absolute Neuts (auto) 15.7 10^3/uL (1.7-8.2) H 09/27/19 05:01 Absolute Lymphs (auto) 1.1 10^3/uL (0.5-4.7) 09/27/19 05:01 Absolute Monos (auto) 1.3 10^3/uL (0.1-1.4) 09/27/19 05:01 Absolute Eos (auto) 0.0 10^3/uL (0.0-0.6) 09/27/19 05:01 Absolute Basos (auto) 0.0 10^3/uL (0.0-0.2) 09/27/19 05:01 Seg Neutrophils % 86.7 % (42-78) H 09/27/19 05:01 Sodium 139.4 mmol/L (137-145) 09/27/19 05:01 Potassium 4.1 mmol/L (3.6-5.0) 09/27/19 05:01 Chloride 106 mmol/L (98-107) 09/27/19 05:01 Carbon Dioxide 24 mmol/L (22-30) 09/27/19 05:01 Anion Gap 9 (5-19) 09/27/19 05:01 BUN 16 mg/dL (7-20) 09/27/19 05:01 Creatinine 0.98 mg/dL (0.52-1.25) 09/27/19 05:01 Est GFR ( Amer) > 60 (>60) 09/27/19 05:01 Est GFR (MDRD) Non-Af 59 (>60) L 09/27/19 05:01 Glucose 200 mg/dL (75-110) H 09/27/19 05:01 POC Glucose 215 mg/dL (70-110) H 09/28/19 11:36 Hemoglobin A1c % 7.4 % (4.7-6.0) H 09/27/19 05:01 Calcium 8.5 mg/dL (8.4-10.2) 09/27/19 05:01 Total Bilirubin 0.5 mg/dL (0.2-1.3) 09/27/19 05:01 Direct Bilirubin 0.3 mg/dL (0.0-0.4) 09/27/19 05:01 Neonat Total Bilirubin Not Reportable 09/27/19 05:01 Neonat Direct Bilirubin Not Reportable 09/27/19 05:01 Neonat Indirect Bili Not Reportable 09/27/19 05:01 AST 49 U/L (14-36) H 09/27/19 05:01 ALT 45 U/L (<35) 09/27/19 05:01 Alkaline Phosphatase 72 U/L (38-126) 09/27/19 05:01 Total Protein 5.9 g/dL (6.3-8.2) L 09/27/19 05:01 Albumin 2.9 g/dL (3.5-5.0) L 09/27/19 05:01 Triglycerides 70 mg/dL (<150) 09/27/19 05:07 Cholesterol 146.48 mg/dL (0-200) 09/27/19 05:07 LDL Cholesterol Direct 79 mg/dL (<100) 09/27/19 05:07 VLDL Cholesterol 14.0 mg/dL (10-31) 09/27/19 05:07 HDL Cholesterol 44 mg/dL (>40) 09/27/19 05:07 Lipase 41.0 U/L (23-300) 09/25/19 15:51 TSH 0.24 uIU/mL (0.47-4.68) L 09/27/19 05:07 Free T4 1.11 ng/dL (0.78-2.19) 09/28/19 10:30 Free T3 pg/mL 2.15 pg/mL (2.77-5.27) L 09/28/19 10:30 Urine Color YELLOW 09/25/19 16:06 Urine Appearance SLIGHTLY-CLOUDY 09/25/19 16:06 Urine pH 7.0 (5.0-9.0) 09/25/19 16:06 Ur Specific Viola 1.024 09/25/19 16:06 Urine Protein 30 mg/dL (NEGATIVE) H 09/25/19 16:06 Urine Glucose (UA) 150 mg/dL (NEGATIVE) H 09/25/19 16:06 Urine Ketones TRACE mg/dL (NEGATIVE) H 09/25/19 16:06 Urine Blood SMALL (NEGATIVE) H 09/25/19 16:06 Urine Nitrite (Reflex) NEGATIVE (NEGATIVE) 09/25/19 16:06 Urine Bilirubin NEGATIVE (NEGATIVE) 09/25/19 16:06 Urine Urobilinogen 2.0 mg/dL (<2.0) H 09/25/19 16:06 Leukocyte Esterase Rfl NEGATIVE (NEGATIVE) 09/25/19 16:06 Urine Bacteria (Auto) 2+ /HPF 09/25/19 16:06 Urine WBC (Reflex) 0 /HPF 09/25/19 16:06 Urine Mucus (Auto) 1+ /LPF 09/25/19 16:06 Urine Ascorbic Acid NEGATIVE (NEGATIVE) 09/25/19 16:06 Blood Type A POSITIVE 09/26/19 04:39 Antibody Screen NEGATIVE 09/26/19 04:39 Impressions: Abdomen/Pelvis CT 09/25/19 18:04 IMPRESSION: Cholelithiasis and findings of acute cholecystitis with a 12 mm gallstone at the neck. Mild reactive colitis at the hepatic flexure with mild gaseous distension of the ascending colon and cecum. Plan Plan of Treatment: Continue with Metformin 500 mg p.o. twice a day and to be followed up by her primary physician in a week for titration of the blood sugar medication. Goals: Blood sugar treatment with metformin and follow-up with primary physician in a week. No heavy lifting more than 10 to 15 pounds for the next 2 weeks until seen in the clinic in 2 weeks. Time Spent: Less than 30 Minutes
== END 2019-09-28 11:59 | disposition home or self-care (01) ==
LOC: ER 15:05 → EH 20:03 → INTOOBSV 20:03 → 5 21:48
PROVIDERS: ATTEND Internal Medicine
PROC: 0FT44ZZ Resection of Gallbladder, Percutaneous Endoscopic Approach (ICD-10-PCS; principal; 2019-09-26 09:00)
DX: K80.01 Calculus of gallbladder with acute cholecystitis with obstruction (principal); E11.65 Type 2 diabetes mellitus with hyperglycemia; K82.1 Hydrops of gallbladder; A41.89 Other specified sepsis; D72.829 Elevated white blood cell count, unspecified; H40.9 Unspecified glaucoma; Z98.890 Other specified postprocedural states
CPT/HCPCS: 99285; 96361; 96374; 86900; 86901; 36415 ×4; 84439; 86850; 82962 ×4; 83690; 84443; 85025 ×3; 85027; 80053 ×3; 81001; 84481; 83036; 80061; 88304 ×2; 74177; 93005; 93010; 00790; 47562; G0378 ×5; J2250; J3490 ×2; J1100; S0119; J3010; J1815 ×3; J1885 ×4; J2270 ×2; J1170; J0330; J2405; J7121; J7050 ×4; J7030 ×2; J2704; S0028 ×4; J2543 ×4; 790

== ENCOUNTER → 2019-10-29 | Outpatient (CLI) | payer OTHER ==
[2015-06-07 10:36] VITALS: BP 99/60
--- NOTE | 2019-11-02 08:51 | WOMENS IMAGING REPORT ---
EXAM DESCRIPTION: 3D SCREENING MAMMO BILAT COMPLETED DATE/TIME: 10/29/2019 9:16 am REASON FOR STUDY: Z12.31 ENCOUNTER FOR SCREENING MAMMOGRAM FOR MALIGNANT NEOPLASM OF BREAST Z12.31 ENCNTR SCREEN MAMMOGRAM FOR MALIGNANT NEOPLASM OF LILY COMPARISON: 2016 and subsequent. EXAM PARAMETERS: Views: Standard craniocaudal and mediolateral oblique views of each breast recorded using digital acquisition and breast tomosynthesis. Read with the assistance of CAD. .[facility] - [employer] Version 9.2 LIMITATIONS: None. FINDINGS: No suspicious masses, suspicious calcifications or architectural distortion. No areas of c oncern. IMPRESSION: NEGATIVE MAMMOGRAM. BIRADS 1. BREAST DENSITY: b. There are scattered areas of fibroglandular density. BIRAD: ASSESSMENT: 1 NEGATIVE RECOMMENDATION: ROUTINE SCREENING COMMENT: The patient has been notified of the results by letter per MQSA requirements. Additional no tification policies are in place for contacting patient with suspicious or incomplete findings. Quality ID #[id number]: [employer] recommends an annual screening mammogram for women aged 40 years or over. This facility utilizes a reminder system to ensure that all patients receive reminder letters, and/or direct phone calls for appointments. This includes reminders for routine scr eening mammograms, diagnostic mammograms, or other Breast Imaging Interventions when appropriate. Th is patient will be placed in the appropriate reminder system. TECHNICAL DOCUMENTATION: FINDING NUMBER: (1) ASSESSMENT: (1) JOB ID: [id number] [employer]- All Rights Reserved Reading location - IP/workstation name: [email or web address]
== END ==
LOC: WI 08:41
PROVIDERS: ATTEND Nurse Practitioner
DX: Z12.31 Encounter for screening mammogram for malignant neoplasm of breast (principal)
CPT/HCPCS: 77063; 77067